=== PATIENT | female | born 1960 | race Caucasian/White ===

== ENCOUNTER → 2018-01-14 | Outpatient (CLI) | payer OTHER ==
[~2018-01-14] VITALS: Ht 149.9 cm; Wt 76.3 kg
[~2018-01-14] MED LIST: ADVAIR 500-501 EACH IH; ADVAIR 500/501 DISK IH; ALBUTEROL17 GM IH; AMARYL2 MG PO; ATACAND16 MG PO; ATIVAN0.25 MG PO; AZOR 10/40 M1 TABLET PO; CARDIZEM CD240 MG PO; CATAPRES0.2 MG PO; CHILDREN'S ASPI81 M1 PO; CIPRO500 MG PO; COMBIVENT INH14.7 GM IH; DIFLUCAN150 MG PO; FLAGYL500 MG PO; FLEXERIL10 MG PO; GLUCOPHAGE500 MG PO; HUMALOG100 UNIT/1 SC; HYZAAR 100-21 TABLET PO; JANUVIA100 MG PO; KLONOPIN1 MG PO; LASIX40 MG PO; MAXALT10 MG PO; MECLIZINE HCL25 M3 PO; METFORMIN HCL500 M4 PO; MULTIPLE VITAM1 EAC1 PO; NITROGLYCERIN0.4 MG SL; NORVASC5 M1 PO; PROTONIX40 MG PO; THEO-DUR,THEOC300 MG PO; TOPAMAX100 MG PO; TRULICITY0.75 MG/0. SC; VENLAFAXINE HCL75 M2 PO; VENLAFAXINE HCL75 MG PO; VERAPAMIL ER180 MG PO; VITAMIN D50000 UNI1 PO; VOLTAREN 1% GE100 GM TD; ZANTAC300 MG PO; ZOCOR10 M1 PO; ZOCOR10 MG PO; ZOFRAN ODT8 MG PO
[2018-01-14 13:08] LABS: CHLORIDE 111 MEQ/L (99-109); CREATININE 0.9 MG/DL (0.6-1.3); GFR ESTIMATE (CALCULATED) > 59 mL/min/; GLUCOSE 133 mg/dL (70-99); POTASSIUM 3.7 MEQ/L (3.7-5.4); SODIUM 141 MEQ/L (136-147); UREA NITROGEN (BUN) 9 mg/dL (9-23)
== END | disposition home or self-care (01) ==
LOC: AMB 11:15
PROVIDERS: Anesthesiology; Surgery
PROC: 0DJ08ZZ Inspection of Upper Intestinal Tract, Via Natural or Artificial Opening Endoscopic (ICD-10-PCS; principal; 2018-01-14)
DX: R13.10 Dysphagia, unspecified (principal); R10.13 Epigastric pain; Z98.84 Bariatric surgery status; K21.9 Gastro-esophageal reflux disease without esophagitis; G47.30 Sleep apnea, unspecified; I10 Essential (primary) hypertension; E11.40 Type 2 diabetes mellitus with diabetic neuropathy, unspecified; J44.9 Chronic obstructive pulmonary disease, unspecified; Z88.1 Allergy status to other antibiotic agents; Z79.84 Long term (current) use of oral hypoglycemic drugs; Z79.82 Long term (current) use of aspirin
CPT/HCPCS: 80048; 82948; J0360; J2250